=== PATIENT | male | born 1955 | race Caucasian/White ===

== ENCOUNTER 2021-12-23 12:36 | Inpatient (IN) | payer MEDICARE, MEDICAID ==
[~2021-12-23] VITALS: Ht 182.9 cm; Wt 70.6 kg
[~2021-12-23 12:36] MED LIST: ALBUTEROL SULFATE 5 MG/ML 20 ML NEB SOLN [BULK] NEB ONE
[2021-12-23] MEDS ORDERED: IPRATROPIUM BROMIDE 0.5 MG/2.5 ML NEB SOLUTION NEB ONE (12:45)
[2021-12-23] MEDS ORDERED: MethylPREDNISolone SOD SUCC 125 MG/2 ML VIAL IVP ONE (12:45)
[2021-12-23] MEDS ORDERED: MAGNESIUM SULFATE 2 GM in DEXTROSE 5%-WATER 100 ML IV ONE (12:45)
[2021-12-23 12:52] LABS: BASOPHILS % (AUTO) 0.3 % (0.0-2.0); EOSINOPHILS % (AUTO) 0.1 % (1.0-6.0); HEMOGLOBIN 14.2 g/dL (13.5-17.5); LYMPHOCYTES # (AUTO) 1.5 K/uL (1.0-4.8); LYMPHOCYTES % (AUTO) 16.6 % (22.0-44.0); MEAN CORPUSCULAR HEMOGLOBIN 29.9 pg (26.0-34.0); MEAN CORPUSCULAR HGB CONC 33.1 G/dL (31.0-37.0); MEAN CORPUSCULAR VOLUME 90 fL (80-100); MONOCYTES # (AUTO) 0.3 K/uL (0.1-1.0); MONOCYTES % (AUTO) 3.6 % (2.0-9.0); NEUTROPHILS % (AUTO) 79.4 % (40.0-70.0); PLATELET COUNT (AUTO) 355 K/uL (150-450); RED BLOOD CELL COUNT(AUTO) 4.76 MIL/uL (4.50-5.90); RED CELL DISTRIBUTION WIDTH 14.3 % (11.5-14.5)
[2021-12-23] MEDS ORDERED: MAGNESIUM SULFATE 2 GM in DEXTROSE 5%-WATER 50 ML IV ONE (13:00)
[2021-12-23 13:01] LABS: ANION GAP 14 mmol/L (8-16); CALCIUM, TOTAL 9.7 mg/dL (8.8-10.5); CARBON DIOXIDE 26 mmol/L (22-29); CHLORIDE 101 mmol/L (98-107); CREATININE 1.19 mg/dL (0.60-1.30); GLOMERULAR FILTR. RATE CALC > 60 mL/min (>60); GLUCOSE,RANDOM 231 mg/dL (70-110); POTASSIUM 4.3 mmol/L (3.5-5.1); SODIUM SERUM 141 mmol/L (136-145); UREA NITROGEN, BLOOD 14 mg/dL (7-18)
[2021-12-23 13:11] LABS: D-DIMER 0.24 mg/L FEU (0.00-0.50); PROTHROMBIN TIME 10.7 SEC (9.4-11.6)
[2021-12-23 13:15] LABS: B-TYPE NATRIURETIC PEPTIDE 76 pg/mL (0-100)
[2021-12-23 13:18] LABS: COVID AG,FIA SOURCE NASOPHARYNGEAL
[2021-12-23 13:23] LABS: ALANINE AMINOTRANSFERASE 36 U/L (12-78); ALBUMIN 4.3 g/dL (3.4-5.0); ALKALINE PHOSPHATASE 65 U/L (46-116); ASPARTATE AMINOTRANSFERASE 15 U/L (15-37); BILIRUBIN,TOTAL 0.3 mg/dL (0.1-1.0); CREATINE KINASE, TOTAL ONLY 98 U/L (39-308); PHOSPHORUS 5.8 mg/dL (2.5-4.9)
[2021-12-23 13:32] LABS: LACTIC ACID 4.8 mmol/L (0.4-2.0)
[2021-12-23 13:36] LABS: C-REACTIVE PROTEIN QUANT < 0.05 mg/dL (0.00-0.30)
[2021-12-23] MEDS ORDERED: SODIUM CHLORIDE 0.9% 2,000 ML IV ONE (13:45)
[2021-12-23 14:06] LABS: ABG BASE EXCESS 0.2 mmol/L (-2.0-3.0); ABG CARBOXYHEMOGLOBIN 0.7 % (0.0-1.5); ABG HCO3 24.3 mmol/L (22.0-26.0); ABG METHEMOGLOBIN 0.3 % (0.0-1.5); ABG OXYGEN CONTENT 21.9 mL/dL (15.0-23.0); ABG OXYGEN SATURATION 99.7 % (95.0-98.0); ABG OXYHEMOGLOBIN 98.7 % (94.0-100.0); ABG PCO2 47 mmHg (35-45); ABG PH 7.356 (7.35-7.450); ABG TOTAL HEMOGLOBIN 14.8 G/dL (12.0-18.0); SOURCE, BLOOD GAS ARTERIAL
[2021-12-23 14:07] LABS: ABG A-A DIFF O2 166.4 mmHg (10-20.0); SITE, BLOOD GAS RT RADIAL
[2021-12-23 14:08] LABS: O2 DEVICE,BLOOD GAS BIPAP (ROOM AIR)
[2021-12-23] MEDS ORDERED: ONDANSETRON HCL 4 MG/2 ML VIAL IVP PRN ×2 (14:45→15:30)
[2021-12-23] MEDS ORDERED: 0.9% SODIUM CHLORIDE 10 ML SYRINGE IVP PRN (14:45)
[2021-12-23] MEDS ORDERED: ACETAMINOPHEN 325 MG TABLET PO PRN ×2 (14:45→15:30)
[2021-12-23] MEDS ORDERED: BISACODYL 10 MG RECTAL RECTAL SUPPOSITORY PR PRN (15:30)
[2021-12-23] MEDS ORDERED: ALBUTEROL SULFATE 2.5 MG/0.5 ML NEB SOLUTION NEB PRN (15:30)
[2021-12-23] MEDS ORDERED: IPRATROPIUM BROMIDE 0.5 MG/2.5 ML NEB SOLUTION NEB PRN (15:30)
[2021-12-23] MEDS ORDERED: MORPHINE SULFATE 2 MG/ML SYRINGE IVP PRN (15:30)
[2021-12-23] MEDS ORDERED: MAGNESIUM HYDROXIDE SUSPENSION 30 ML UDCUP PO PRN (15:30)
[2021-12-23] MEDS ORDERED: HYDROCODONE/ACETAMINOPHEN 5-325 MG TABLET PO PRN (15:30)
[2021-12-23] MEDS ORDERED: ZOLPIDEM TARTRATE 5 MG TABLET PO PRN (15:30)
[2021-12-23 16:46] VITALS: BP 109/61
[2021-12-23] MEDS: BENZONATATE 100 MG CAPSULE PO SCH ×2 (18:08→21:45)
[2021-12-23] MEDS: MethylPREDNISolone SOD SUCC 125 MG/2 ML VIAL IVP SCH (18:08)
[2021-12-23] MEDS: HEPARIN SODIUM,PORCINE 5,000 UNITS/ML VIAL SQ SCH (18:12)
[2021-12-23] MEDS: CefTRIAXone 1 GM/DEXTROSE 50 ML IV SCH (18:36)
[2021-12-23] MEDS: IPRATROPIUM BROMIDE 0.5 MG/2.5 ML NEB SOLUTION NEB SCH (20:20)
[2021-12-23] MEDS: ALBUTEROL SULFATE 2.5 MG/0.5 ML NEB SOLUTION NEB SCH (20:20)
[2021-12-23 20:35] VITALS: BP 101/78
[2021-12-23] MEDS: GuaiFENesin SR 600 MG ER TABLET PO SCH (21:45)
[2021-12-23] MEDS: AZITHROMYCIN 500 MG/NS 250 ML IV SCH (21:45)
[2021-12-23] MEDS: DOCUSATE SODIUM 100 MG CAPSULE PO SCH (21:45)
[2021-12-24] MEDS: HEPARIN SODIUM,PORCINE 5,000 UNITS/ML VIAL SQ SCH ×4 (00:03→23:50)
[2021-12-24] MEDS: MethylPREDNISolone SOD SUCC 125 MG/2 ML VIAL IVP SCH ×5 (00:03→23:51)
[2021-12-24 00:34] VITALS: BP 100/67
[2021-12-24] MEDS: IPRATROPIUM BROMIDE 0.5 MG/2.5 ML NEB SOLUTION NEB SCH ×2 (02:00→09:21)
[2021-12-24] MEDS: ALBUTEROL SULFATE 2.5 MG/0.5 ML NEB SOLUTION NEB SCH (02:00)
[2021-12-24 05:06] VITALS: BP 118/80
[2021-12-24 07:43] VITALS: BP 124/85
[2021-12-24] MEDS: PANTOPRAZOLE SODIUM 40 MG DR TABLET PO SCH (08:07)
[2021-12-24] MEDS: BENZONATATE 100 MG CAPSULE PO SCH ×3 (08:08→21:45)
[2021-12-24] MEDS: GuaiFENesin SR 600 MG ER TABLET PO SCH ×2 (08:08→21:44)
[2021-12-24] MEDS: DOCUSATE SODIUM 100 MG CAPSULE PO SCH ×2 (08:08→21:44)
[2021-12-24 10:32] LABS: EOSINOPHILS % (AUTO) 0 % (1.0-6.0); HEMATOCRIT 39.5 % (41-53); LYMPHOCYTES # (AUTO) 0.3 K/uL (1.0-4.8); LYMPHOCYTES % (AUTO) 3.4 % (22.0-44.0); MEAN CORPUSCULAR HEMOGLOBIN 29.7 pg (26.0-34.0); MEAN CORPUSCULAR VOLUME 90 fL (80-100); MONOCYTES # (AUTO) 0.5 K/uL (0.1-1.0); NEUTROPHILS # (AUTO) 7.6 K/uL (1.8-7.7); PLATELET COUNT (AUTO) 294 K/uL (150-450); RED BLOOD CELL COUNT(AUTO) 4.39 MIL/uL (4.50-5.90); RED CELL DISTRIBUTION WIDTH 14.5 % (11.5-14.5)
[2021-12-24 10:33] LABS: NEUTROPHILS % (AUTO) 90.6 % (40.0-70.0)
[2021-12-24 10:49] LABS: ALBUMIN 3.6 g/dL (3.4-5.0); BILIRUBIN,TOTAL 0.3 mg/dL (0.1-1.0); CREATININE 1.24 mg/dL (0.60-1.30); POTASSIUM 4.5 mmol/L (3.5-5.1); TOTAL PROTEIN, SERUM 6.8 g/dL (6.4-8.2)
[2021-12-24 11:43] VITALS: BP 112/55
[2021-12-24] MEDS: IPRATROPIUM BROMIDE HFA 17 MCG/PUFF 12.9 GM INHALER IH PRN ×2 (15:28→22:03)
[2021-12-24] MEDS: ALBUTEROL SULFATE HFA 90 MCG/PUFF 8 GM INHALER IH PRN ×2 (15:29→22:03)
[2021-12-24 15:49] VITALS: BP 143/108
[2021-12-24] MEDS: CefTRIAXone 1 GM/DEXTROSE 50 ML IV SCH (17:27)
[2021-12-24] MEDS: AZITHROMYCIN 500 MG/NS 250 ML IV SCH (18:39)
[2021-12-24 19:35] VITALS: BP 127/96
[2021-12-25 00:06] VITALS: BP 122/75
[2021-12-25 04:58] VITALS: BP 126/91
[2021-12-25] MEDS: MethylPREDNISolone SOD SUCC 125 MG/2 ML VIAL IVP SCH (06:44)
[2021-12-25 07:38] LABS: ANION GAP 5 mmol/L (8-16); CALCIUM, TOTAL 9.1 mg/dL (8.8-10.5); CARBON DIOXIDE 33 mmol/L (22-29); CHLORIDE 103 mmol/L (98-107); CREATININE 1.07 mg/dL (0.60-1.30); GLOMERULAR FILTR. RATE CALC > 60 mL/min (>60); GLUCOSE,RANDOM 121 mg/dL (70-110); POTASSIUM 4.9 mmol/L (3.5-5.1); SODIUM SERUM 141 mmol/L (136-145); UREA NITROGEN, BLOOD 18 mg/dL (7-18)
[2021-12-25] MEDS: BENZONATATE 100 MG CAPSULE PO SCH ×3 (07:58→20:19)
[2021-12-25] MEDS: PANTOPRAZOLE SODIUM 40 MG DR TABLET PO SCH (07:58)
[2021-12-25] MEDS: PredniSONE 20 MG TABLET PO SCH (07:59)
[2021-12-25] MEDS: HEPARIN SODIUM,PORCINE 5,000 UNITS/ML VIAL SQ SCH ×2 (07:59→16:44)
[2021-12-25] MEDS: GuaiFENesin SR 600 MG ER TABLET PO SCH ×2 (07:59→20:19)
[2021-12-25] MEDS: DOCUSATE SODIUM 100 MG CAPSULE PO SCH ×2 (07:59→20:19)
[2021-12-25] MEDS: IPRATROPIUM BROMIDE HFA 17 MCG/PUFF 12.9 GM INHALER IH PRN ×2 (08:07→20:28)
[2021-12-25] MEDS: ALBUTEROL SULFATE HFA 90 MCG/PUFF 8 GM INHALER IH PRN ×2 (08:07→20:29)
[2021-12-25 08:44] VITALS: BP 128/95
[2021-12-25 12:52] VITALS: BP 152/96
[2021-12-25 15:54] VITALS: BP 159/95
[2021-12-25] MEDS: CefTRIAXone 1 GM/DEXTROSE 50 ML IV SCH (17:43)
[2021-12-25] MEDS: AZITHROMYCIN 500 MG/NS 250 ML IV SCH (18:35)
[2021-12-25 22:15] VITALS: BP 132/89
[2021-12-26] VITALS: BP 114/81
[2021-12-26] MEDS: HEPARIN SODIUM,PORCINE 5,000 UNITS/ML VIAL SQ SCH ×3 (00:17→16:24)
[2021-12-26 04:00] VITALS: BP 136/99
[2021-12-26 07:33] VITALS: BP 136/83
[2021-12-26 08:03] LABS: ANION GAP 3 mmol/L (8-16); CALCIUM, TOTAL 8.8 mg/dL (8.8-10.5); CARBON DIOXIDE 37 mmol/L (22-29); CHLORIDE 103 mmol/L (98-107); CREATININE 1.05 mg/dL (0.60-1.30); GLOMERULAR FILTR. RATE CALC > 60 mL/min (>60); GLUCOSE,RANDOM 89 mg/dL (70-110); POTASSIUM 4.6 mmol/L (3.5-5.1); SODIUM SERUM 143 mmol/L (136-145); UREA NITROGEN, BLOOD 20 mg/dL (7-18)
[2021-12-26] MEDS: PANTOPRAZOLE SODIUM 40 MG DR TABLET PO SCH (08:59)
[2021-12-26] MEDS: BENZONATATE 100 MG CAPSULE PO SCH ×3 (08:59→20:19)
[2021-12-26] MEDS: PredniSONE 20 MG TABLET PO SCH (08:59)
[2021-12-26] MEDS: GuaiFENesin SR 600 MG ER TABLET PO SCH ×2 (09:00→20:19)
[2021-12-26] MEDS: ALBUTEROL SULFATE HFA 90 MCG/PUFF 8 GM INHALER IH PRN ×2 (09:01→16:29)
[2021-12-26] MEDS: IPRATROPIUM BROMIDE HFA 17 MCG/PUFF 12.9 GM INHALER IH PRN ×2 (09:01→16:29)
[2021-12-26] MEDS: DOCUSATE SODIUM 100 MG CAPSULE PO SCH ×2 (09:07→20:19)
[2021-12-26 11:26] VITALS: BP 157/90
[2021-12-26] MEDS ORDERED: MethylPREDNISolone SOD SUCC 125 MG/2 ML VIAL IVP ONE (12:30)
[2021-12-26 16:22] VITALS: BP 133/105
[2021-12-26] MEDS: CefTRIAXone 1 GM/DEXTROSE 50 ML IV SCH (18:06)
[2021-12-26] MEDS: BUDESONIDE 0.5 MG/2 ML NEB SOLUTION NEB SCH (20:10)
[2021-12-26] MEDS: AZITHROMYCIN 500 MG/NS 250 ML IV SCH (20:19)
[2021-12-26 20:22] VITALS: BP 138/97
[2021-12-27] MEDS: HEPARIN SODIUM,PORCINE 5,000 UNITS/ML VIAL SQ SCH ×4 (00:04→23:30)
[2021-12-27 01:59] VITALS: BP 134/94
[2021-12-27 04:39] VITALS: BP 118/74
[2021-12-27] MEDS: BUDESONIDE 0.5 MG/2 ML NEB SOLUTION NEB SCH ×2 (08:14→19:42)
[2021-12-27 08:26] VITALS: BP 148/103
[2021-12-27] MEDS: PredniSONE 20 MG TABLET PO SCH (08:39)
[2021-12-27] MEDS: BENZONATATE 100 MG CAPSULE PO SCH ×3 (08:40→20:27)
[2021-12-27] MEDS: DOCUSATE SODIUM 100 MG CAPSULE PO SCH ×2 (08:40→20:27)
[2021-12-27] MEDS: GuaiFENesin SR 600 MG ER TABLET PO SCH ×2 (08:40→20:27)
[2021-12-27] MEDS: PANTOPRAZOLE SODIUM 40 MG DR TABLET PO SCH (08:40)
[2021-12-27 11:10] LABS: ABG BASE EXCESS 5.6 mmol/L (-2.0-3.0); ABG CARBOXYHEMOGLOBIN 0.5 % (0.0-1.5); ABG HCO3 28.9 mmol/L (22.0-26.0); ABG METHEMOGLOBIN 0.3 % (0.0-1.5); ABG OXYGEN CONTENT 20.5 mL/dL (15.0-23.0); ABG OXYHEMOGLOBIN 96.2 % (94.0-100.0); ABG PCO2 44 mmHg (35-45); ABG PH 7.447 (7.35-7.450); ABG TOTAL HEMOGLOBIN 15.1 G/dL (12.0-18.0); PO2, ARTERIAL BG 85.1 mmHg (79.0-87.0); SOURCE, BLOOD GAS ARTERIAL
[2021-12-27 11:12] LABS: SITE, BLOOD GAS RT
[2021-12-27 13:14] VITALS: BP 140/90
[2021-12-27] MEDS: ALBUTEROL SULFATE HFA 90 MCG/PUFF 8 GM INHALER IH PRN (16:19)
[2021-12-27] MEDS: IPRATROPIUM BROMIDE HFA 17 MCG/PUFF 12.9 GM INHALER IH PRN (16:19)
[2021-12-27] MEDS: CefTRIAXone 1 GM/DEXTROSE 50 ML IV SCH (17:55)
[2021-12-27 18:35] VITALS: BP 132/88
[2021-12-27] MEDS: AZITHROMYCIN 500 MG/NS 250 ML IV SCH (20:27)
[2021-12-27 20:35] VITALS: BP 131/90
[2021-12-28 00:16] VITALS: BP 117/77
[2021-12-28 04:08] VITALS: BP 137/92
[2021-12-28] MEDS: BENZONATATE 100 MG CAPSULE PO SCH ×3 (08:29→20:02)
[2021-12-28] MEDS: PredniSONE 20 MG TABLET PO SCH (08:29)
[2021-12-28] MEDS: GuaiFENesin SR 600 MG ER TABLET PO SCH ×2 (08:29→20:02)
[2021-12-28] MEDS: DOCUSATE SODIUM 100 MG CAPSULE PO SCH ×2 (08:29→20:02)
[2021-12-28] MEDS: HEPARIN SODIUM,PORCINE 5,000 UNITS/ML VIAL SQ SCH ×3 (08:29→23:24)
[2021-12-28] MEDS: PANTOPRAZOLE SODIUM 40 MG DR TABLET PO SCH (08:29)
[2021-12-28 08:37] VITALS: BP 135/99
[2021-12-28] MEDS: BUDESONIDE 0.5 MG/2 ML NEB SOLUTION NEB SCH ×2 (08:52→20:15)
[2021-12-28 12:00] VITALS: BP 136/76
[2021-12-28] MEDS: CefTRIAXone 1 GM/DEXTROSE 50 ML IV SCH (18:19)
[2021-12-28] MEDS: AZITHROMYCIN 500 MG/NS 250 ML IV SCH (19:39)
[2021-12-28 21:48] VITALS: BP 100/71
[2021-12-29 01:17] VITALS: BP 138/88
[2021-12-29 04:36] VITALS: BP 151/104
[2021-12-29 08:00] VITALS: BP 134/79
[2021-12-29] MEDS: BUDESONIDE 0.5 MG/2 ML NEB SOLUTION NEB SCH ×2 (08:38→20:04)
[2021-12-29] MEDS: DOCUSATE SODIUM 100 MG CAPSULE PO SCH ×2 (09:00→20:28)
[2021-12-29] MEDS: HEPARIN SODIUM,PORCINE 5,000 UNITS/ML VIAL SQ SCH ×2 (09:14→16:44)
[2021-12-29] MEDS: PredniSONE 20 MG TABLET PO SCH (09:15)
[2021-12-29] MEDS: GuaiFENesin SR 600 MG ER TABLET PO SCH ×2 (09:15→20:28)
[2021-12-29] MEDS: BENZONATATE 100 MG CAPSULE PO SCH ×3 (09:15→20:28)
[2021-12-29] MEDS: PANTOPRAZOLE SODIUM 40 MG DR TABLET PO SCH (09:15)
[2021-12-29 12:00] VITALS: BP 123/79
[2021-12-29] MEDS ORDERED: ALBU8HFA IH (15:31)
[2021-12-29] MEDS ORDERED: AMOX1TAB16 PO (15:31)
[2021-12-29] MEDS ORDERED: PRED20 PO (15:31)
[2021-12-29] MEDS ORDERED: BUDE0.5A NEB (15:31)
[2021-12-29] MEDS ORDERED: ALBU0.212 NEB (15:31)
[2021-12-29] MEDS: AZITHROMYCIN 500 MG/NS 250 ML IV SCH (18:34)
[2021-12-29] MEDS: CefTRIAXone 1 GM/DEXTROSE 50 ML IV SCH (18:36)
[2021-12-29 20:00] VITALS: BP 114/74
[2021-12-30] VITALS: BP 120/70
[2021-12-30] MEDS: HEPARIN SODIUM,PORCINE 5,000 UNITS/ML VIAL SQ SCH ×4 (00:28→23:27)
[2021-12-30 04:00] VITALS: BP 124/68
[2021-12-30] MEDS: BUDESONIDE 0.5 MG/2 ML NEB SOLUTION NEB SCH ×2 (07:50→19:32)
[2021-12-30] MEDS: BENZONATATE 100 MG CAPSULE PO SCH ×3 (08:57→20:39)
[2021-12-30] MEDS: GuaiFENesin SR 600 MG ER TABLET PO SCH ×2 (08:57→20:39)
[2021-12-30] MEDS: PANTOPRAZOLE SODIUM 40 MG DR TABLET PO SCH (08:57)
[2021-12-30] MEDS: PredniSONE 20 MG TABLET PO SCH (09:00)
[2021-12-30] MEDS: DOCUSATE SODIUM 100 MG CAPSULE PO SCH ×2 (09:00→20:39)
[2021-12-30 14:22] VITALS: BP 121/82
[2021-12-30] MEDS: CefTRIAXone 1 GM/DEXTROSE 50 ML IV SCH (17:54)
[2021-12-30] MEDS: AZITHROMYCIN 500 MG/NS 250 ML IV SCH (20:38)
[2021-12-30 20:57] VITALS: BP 118/65
[2021-12-31 00:04] VITALS: BP 126/79
[2021-12-31 03:37] VITALS: BP 113/88
[2021-12-31 07:43] VITALS: BP 113/75
[2021-12-31] MEDS: BUDESONIDE 0.5 MG/2 ML NEB SOLUTION NEB SCH (08:27)
[2021-12-31] MEDS: PANTOPRAZOLE SODIUM 40 MG DR TABLET PO SCH (08:56)
[2021-12-31] MEDS: GuaiFENesin SR 600 MG ER TABLET PO SCH (08:56)
[2021-12-31] MEDS: DOCUSATE SODIUM 100 MG CAPSULE PO SCH (08:56)
[2021-12-31] MEDS: PredniSONE 20 MG TABLET PO SCH (08:56)
[2021-12-31] MEDS: BENZONATATE 100 MG CAPSULE PO SCH ×2 (08:56→16:24)
[2021-12-31] MEDS: HEPARIN SODIUM,PORCINE 5,000 UNITS/ML VIAL SQ SCH ×2 (08:57→16:27)
[2021-12-31 11:17] VITALS: BP 106/60
[2021-12-31 15:12] VITALS: BP 100/64
[2021-12-31] MEDS: CefTRIAXone 1 GM/DEXTROSE 50 ML IV SCH (17:29)
== END 2021-12-31 18:50 | disposition home or self-care (01) | DRG 189 ==
LOC: EMS 12:43 → 5N 14:29
PROVIDERS: ADMIT Internal Medicine; ATTEND Internal Medicine
PROC: 5A09357 Assistance with Respiratory Ventilation, Less than 24 Consecutive Hours, Continuous Positive Airway Pressure (ICD-10-PCS; principal; 2021-12-23)
DX: J96.01 Acute respiratory failure with hypoxia (principal); R65.11 Systemic inflammatory response syndrome (SIRS) of non-infectious origin with acute organ dysfunction; J45.901 Unspecified asthma with (acute) exacerbation; J44.1 Chronic obstructive pulmonary disease with (acute) exacerbation; Z20.822 Contact with and (suspected) exposure to COVID-19; I10 Essential (primary) hypertension; Z86.16 Personal history of COVID-19; Z82.0 Family history of epilepsy and other diseases of the nervous system
CPT/HCPCS: 36600; 71045; 80048; 80053; 82550; 82805; 83605; 83735; 83880; 84100; 84145; 84484; 85025; 85379; 85610; 85730; 86140; 93005; 93306; 94640; 94644; 94660; 99291; J0456; J0696; J1644; J2930; J3475; J3535; J7060; 36415-L1; 36415-TC; J7613; U0003

== ENCOUNTER 2022-03-31 10:40 | Emergency (ER) | payer MEDICARE, MEDICAID ==
[~2022-03-31] VITALS: Ht 182.9 cm; Wt 70.5 kg
[~2022-03-31 10:40] MED LIST changes: +ALBU0.212 NEB; +ALBU8HFA IH; -ALBUTEROL SULFATE 5 MG/ML 20 ML NEB SOLN [BULK] NEB ONE; +AMOX1TAB16 PO; +BUDE0.5A NEB; +PRED20 PO
[2022-03-31 11:47] LABS: BASOPHILS % (AUTO) 1.1 % (0.0-2.0); EOSINOPHILS % (AUTO) 4.4 % (1.0-6.0); HEMATOCRIT 40.2 % (41-53); HEMOGLOBIN 13.7 g/dL (13.5-17.5); LYMPHOCYTES # (AUTO) 1.3 K/uL (1.0-4.8); LYMPHOCYTES % (AUTO) 27.1 % (22.0-44.0); MEAN CORPUSCULAR HEMOGLOBIN 30.3 pg (26.0-34.0); MEAN CORPUSCULAR VOLUME 89 fL (80-100); MONOCYTES # (AUTO) 0.5 K/uL (0.1-1.0); MONOCYTES % (AUTO) 10.5 % (2.0-9.0); NEUTROPHILS # (AUTO) 2.7 K/uL (1.8-7.7); NEUTROPHILS % (AUTO) 56.9 % (40.0-70.0); PLATELET COUNT (AUTO) 274 K/uL (150-450); RED BLOOD CELL COUNT(AUTO) 4.51 MIL/uL (4.50-5.90); RED CELL DISTRIBUTION WIDTH 14.4 % (11.5-14.5)
[2022-03-31] MEDS ORDERED: 0.9% SODIUM CHLORIDE 5 ML NEB SOLUTION NEB ONE (11:54)
[2022-03-31] MEDS ORDERED: ALBU8HFA IH (11:54)
[2022-03-31] MEDS ORDERED: FLUT1BLS IH (11:54)
[2022-03-31] MEDS ORDERED: ATOR10TA69 PO (11:54)
[2022-03-31] MEDS ORDERED: LORA10TA7 PO (11:54)
[2022-03-31] MEDS ORDERED: LISI20TA24 PO (11:54)
[2022-03-31 11:59] LABS: ANION GAP 7 mmol/L (8-16); CALCIUM, TOTAL 9.3 mg/dL (8.8-10.5); CARBON DIOXIDE 31 mmol/L (22-29); CHLORIDE 103 mmol/L (98-107); GLOMERULAR FILTR. RATE CALC > 60 mL/min (>60); GLUCOSE,RANDOM 103 mg/dL (70-110); POTASSIUM 4.2 mmol/L (3.5-5.1); SODIUM SERUM 141 mmol/L (136-145); UREA NITROGEN, BLOOD 16 mg/dL (7-18)
[2022-03-31] MEDS ORDERED: IPRATROPIUM BROMIDE 0.5 MG/2.5 ML NEB SOLUTION NEB ONE (12:00)
[2022-03-31] MEDS ORDERED: ALBUTEROL SULFATE 5 MG/ML 20 ML NEB SOLN [BULK] NEB ONE (12:00)
[2022-03-31 12:04] LABS: ALANINE AMINOTRANSFERASE 9 U/L (12-78); ALKALINE PHOSPHATASE 50 U/L (46-116); ASPARTATE AMINOTRANSFERASE 14 U/L (15-37); BILIRUBIN,TOTAL 0.4 mg/dL (0.1-1.0); TOTAL PROTEIN, SERUM 7.3 g/dL (6.4-8.2)
[2022-03-31 12:09] LABS: B-TYPE NATRIURETIC PEPTIDE 13 pg/mL (0-100)
[2022-03-31 14:10] VITALS: BP 112/75
== END 2022-03-31 14:12 | disposition home or self-care (01) ==
LOC: EMS 10:40
DX: J45.901 Unspecified asthma with (acute) exacerbation (principal); I10 Essential (primary) hypertension; Z79.899 Other long term (current) drug therapy
CPT/HCPCS: 71045; 80053; 83880; 84484; 85025; 85610; 85730; 93005; 94640; 99285; 36415-L1; 36415-TC

== ENCOUNTER 2022-12-02 00:13 | Emergency (ER) | payer MEDICARE, MEDICAID ==
[~2022-12-02] VITALS: Ht 182.9 cm; Wt 72.7 kg
[~2022-12-02 00:13] MED LIST changes: -ALBU0.212 NEB; -AMOX1TAB16 PO; +ATOR10TA69 PO; -BUDE0.5A NEB; +FLUT1BLS IH; +LISI20TA24 PO; +LORA10TA7 PO; -PRED20 PO
[2022-12-02] MEDS ORDERED: ALBUTEROL SULFATE 2.5 MG/0.5 ML NEB SOLUTION NEB ONE ×2 (00:30→03:00)
[2022-12-02] MEDS ORDERED: IPRATROPIUM BROMIDE 0.5 MG/2.5 ML NEB SOLUTION NEB ONE ×2 (00:30→03:00)
[2022-12-02] MEDS ORDERED: MethylPREDNISolone SOD SUCC 125 MG/2 ML VIAL IVP ONE (00:45)
[2022-12-02 01:01] LABS: BASOPHILS % (AUTO) 0.5 % (0.0-2.0); EOSINOPHILS % (AUTO) 7.9 % (1.0-6.0); HEMATOCRIT 41.1 % (41-53); HEMOGLOBIN 13.8 g/dL (13.5-17.5); LYMPHOCYTES # (AUTO) 1.7 K/uL (1.0-4.8); LYMPHOCYTES % (AUTO) 17.8 % (22.0-44.0); MEAN CORPUSCULAR HEMOGLOBIN 30.3 pg (26.0-34.0); MEAN CORPUSCULAR HGB CONC 33.6 G/dL (31.0-37.0); MEAN CORPUSCULAR VOLUME 90 fL (80-100); MONOCYTES # (AUTO) 1.1 K/uL (0.1-1.0); MONOCYTES % (AUTO) 11.2 % (2.0-9.0); NEUTROPHILS # (AUTO) 5.9 K/uL (1.8-7.7); NEUTROPHILS % (AUTO) 62.6 % (40.0-70.0); PLATELET COUNT (AUTO) 303 K/uL (150-450); RED BLOOD CELL COUNT(AUTO) 4.55 MIL/uL (4.50-5.90); RED CELL DISTRIBUTION WIDTH 14.5 % (11.5-14.5)
[2022-12-02 01:11] LABS: CALCIUM, TOTAL 8.9 mg/dL (8.8-10.5); CREATININE 1.2 mg/dL (0.60-1.30); POTASSIUM 4.6 mmol/L (3.5-5.1)
[2022-12-02 01:14] LABS: COVID AG,FIA SOURCE NASOPHARYNGEAL
[2022-12-02 01:37] LABS: INFLUENZA TYPE A NEGATIVE FOR TYPE A (NEGATIVE); INFLUENZA TYPE B NEGATIVE FOR TYPE B (NEGATIVE)
[2022-12-02] MEDS ORDERED: PRED-554 PO (02:49)
[2022-12-02 04:29] VITALS: BP 109/71
== END 2022-12-02 05:59 | disposition home or self-care (01) ==
LOC: EMS 00:15
DX: J44.1 Chronic obstructive pulmonary disease with (acute) exacerbation (principal); I10 Essential (primary) hypertension; Z79.899 Other long term (current) drug therapy; Z20.822 Contact with and (suspected) exposure to COVID-19
CPT/HCPCS: 99285; 96374; 71045; 87426; 80048; 84484; 85025; 87804; 36415; 94640; 93005; J2930; J7613

== ENCOUNTER 2022-12-31 12:10 | Emergency (ER) | payer MEDICARE, MEDICAID ==
[~2022-12-31] VITALS: Ht 177.8 cm; Wt 69.1 kg
[~2022-12-31 12:10] MED LIST changes: +PRED-554 PO
[2022-12-31] MEDS ORDERED: MethylPREDNISolone SOD SUCC 125 MG/2 ML VIAL IVP ONE (13:00)
[2022-12-31] MEDS ORDERED: ALBUTEROL SULFATE 2.5 MG/0.5 ML NEB SOLUTION NEB ONE (13:00)
[2022-12-31] MEDS ORDERED: IPRATROPIUM BROMIDE 0.5 MG/2.5 ML NEB SOLUTION NEB ONE (13:00)
[2022-12-31 13:01] LABS: BASOPHILS % (AUTO) 0.9 % (0.0-2.0); EOSINOPHILS % (AUTO) 5.6 % (1.0-6.0); HEMATOCRIT 42.3 % (41-53); HEMOGLOBIN 13.9 g/dL (13.5-17.5); LYMPHOCYTES # (AUTO) 1.1 K/uL (1.0-4.8); LYMPHOCYTES % (AUTO) 21.7 % (22.0-44.0); MEAN CORPUSCULAR HEMOGLOBIN 29.8 pg (26.0-34.0); MEAN CORPUSCULAR HGB CONC 32.9 G/dL (31.0-37.0); MEAN CORPUSCULAR VOLUME 91 fL (80-100); MONOCYTES # (AUTO) 0.5 K/uL (0.1-1.0); MONOCYTES % (AUTO) 9.5 % (2.0-9.0); NEUTROPHILS # (AUTO) 3.3 K/uL (1.8-7.7); NEUTROPHILS % (AUTO) 62.3 % (40.0-70.0); PLATELET COUNT (AUTO) 294 K/uL (150-450); RED BLOOD CELL COUNT(AUTO) 4.67 MIL/uL (4.50-5.90); RED CELL DISTRIBUTION WIDTH 13.7 % (11.5-14.5)
[2022-12-31 13:04] LABS: ANION GAP 6 mmol/L (8-16); CALCIUM, TOTAL 9.5 mg/dL (8.8-10.5); CARBON DIOXIDE 32 mmol/L (22-29); CHLORIDE 100 mmol/L (98-107); CREATININE 0.97 mg/dL (0.60-1.30); GLOMERULAR FILTR. RATE CALC > 60 mL/min (>60); GLUCOSE,RANDOM 101 mg/dL (70-110); POTASSIUM 4.2 mmol/L (3.5-5.1); SODIUM SERUM 138 mmol/L (136-145); UREA NITROGEN, BLOOD 11 mg/dL (7-18)
[2022-12-31 13:10] LABS: ALANINE AMINOTRANSFERASE 33 U/L (12-78); ALBUMIN 4.3 g/dL (3.4-5.0); ALKALINE PHOSPHATASE 75 U/L (46-116); ASPARTATE AMINOTRANSFERASE 25 U/L (15-37); BILIRUBIN,TOTAL 0.3 mg/dL (0.1-1.0); CREATINE KINASE, TOTAL ONLY 95 U/L (39-308); TOTAL PROTEIN, SERUM 7.7 g/dL (6.4-8.2)
[2022-12-31 13:15] LABS: B-TYPE NATRIURETIC PEPTIDE 11 pg/mL (0-100)
[2022-12-31 15:22] LABS: COVID AG,FIA SOURCE NASOPHARYNGEAL
[2022-12-31 15:52] VITALS: BP 147/88
[2022-12-31] MEDS ORDERED: ALBU8HFA IH (15:57)
[2022-12-31] MEDS ORDERED: IPRA3AMP24 NEB (15:57)
[2022-12-31] MEDS ORDERED: IPRAHFA IH (15:57)
[2022-12-31] MEDS ORDERED: PRED-554 PO (15:57)
[2022-12-31 16:18] LABS: INFLUENZA TYPE A NEGATIVE FOR TYPE A (NEGATIVE); INFLUENZA TYPE B NEGATIVE FOR TYPE B (NEGATIVE)
== END 2022-12-31 16:24 | disposition home or self-care (01) ==
LOC: EMS 12:11
DX: R06.03 Acute respiratory distress (principal); J44.1 Chronic obstructive pulmonary disease with (acute) exacerbation; J45.909 Unspecified asthma, uncomplicated; J44.9 Chronic obstructive pulmonary disease, unspecified; I10 Essential (primary) hypertension; Z20.822 Contact with and (suspected) exposure to COVID-19
CPT/HCPCS: 99285; 96374; 71045; 87426; 80053; 82550; 83880; 84484; 85025; 85379; 87040; 87804; 94644; 93005; J2930; 99284; 36415-L1; 36415-TC; J7613

== ENCOUNTER 2023-09-26 15:26 | Emergency (ER) | payer MEDICARE, MEDICAID ==
[~2023-09-26] VITALS: Ht 180.3 cm; Wt 70.9 kg
[~2023-09-26 15:26] MED LIST changes: +ALBU18HF12 IH; -ALBU8HFA IH; +IPRA3AMP24 NEB; +IPRAHFA IH
[2023-09-26] MEDS ORDERED: BACITRACIN 0.9 GM PACKET OINTMENT TP ONE (16:00)
[2023-09-26] MEDS ORDERED: PERTUSS(ACELL),DIPH,TET VAC/PF 0.5 ML SYRINGE IM. ONE (16:00)
[2023-09-26] MEDS ORDERED: ACETAMINOPHEN 500 MG TABLET PO ONE (16:00)
[2023-09-26 16:08] VITALS: TEMP 98.5
[2023-09-26 17:00] VITALS: BP 140/90; PULSE 80; RESP 12
== END 2023-09-26 17:14 | disposition home or self-care (01) ==
LOC: EMS 15:28
DX: S09.90XA Unspecified injury of head, initial encounter (principal); J44.9 Chronic obstructive pulmonary disease, unspecified; I10 Essential (primary) hypertension; Y04.8XXA Assault by other bodily force, initial encounter; Y93.89 Activity, other specified; Y92.89 Other specified places as the place of occurrence of the external cause; Y99.8 Other external cause status
CPT/HCPCS: 70450; 70486; 72125; 90471; 90715; 99285

== ENCOUNTER 2023-09-29 13:10 | Emergency (ER) | payer MEDICARE, MEDICAID ==
[~2023-09-29] VITALS: Ht 177.8 cm; Wt 70.5 kg
[2023-09-29 13:19] VITALS: TEMP 97.8
[2023-09-29 14:01] LABS: EOSINOPHILS % (AUTO) 8.1 % (1.0-6.0); HEMATOCRIT 36.5 % (41-53); HEMOGLOBIN 12.1 g/dL (13.5-17.5); LYMPHOCYTES # (AUTO) 1.1 K/uL (1.0-4.8); LYMPHOCYTES % (AUTO) 16.5 % (22.0-44.0); MEAN CORPUSCULAR HEMOGLOBIN 29.7 pg (26.0-34.0); MEAN CORPUSCULAR HGB CONC 33.1 G/dL (31.0-37.0); MEAN CORPUSCULAR VOLUME 90 fL (80-100); MONOCYTES # (AUTO) 0.5 K/uL (0.1-1.0); MONOCYTES % (AUTO) 7.6 % (2.0-9.0); NEUTROPHILS # (AUTO) 4.4 K/uL (1.8-7.7); NEUTROPHILS % (AUTO) 66.8 % (40.0-70.0); PLATELET COUNT (AUTO) 248 K/uL (150-450); RED BLOOD CELL COUNT(AUTO) 4.07 MIL/uL (4.50-5.90); RED CELL DISTRIBUTION WIDTH 14.9 % (11.5-14.5); WHITE BLOOD COUNT (AUTO) 6.6 K/uL (4.5-11.0)
[2023-09-29 14:11] LABS: ANION GAP 7 mmol/L (8-16); CARBON DIOXIDE 29 mmol/L (22-29); CHLORIDE 103 mmol/L (98-107); GLOMERULAR FILTR. RATE CALC > 60 mL/min (>60); GLUCOSE,RANDOM 105 mg/dL (70-110); POTASSIUM 4.1 mmol/L (3.5-5.1); SODIUM SERUM 139 mmol/L (136-145); UREA NITROGEN, BLOOD 12 mg/dL (7-18)
[2023-09-29 14:17] LABS: ALANINE AMINOTRANSFERASE 29 U/L (12-78); ALKALINE PHOSPHATASE 65 U/L (46-116); ASPARTATE AMINOTRANSFERASE 18 U/L (15-37); BILIRUBIN,TOTAL 0.3 mg/dL (0.1-1.0); TOTAL PROTEIN, SERUM 7.3 g/dL (6.4-8.2)
[2023-09-29 14:19] LABS: B-TYPE NATRIURETIC PEPTIDE 18 pg/mL (0-100); TROPONIN I-HIGH SENSITIVITY 6 ng/L (<76)
[2023-09-29] MEDS ORDERED: ALBUTEROL SULFATE 2.5 MG/0.5 ML 5 ML NEB SOLUTION NEB ONE (15:00)
[2023-09-29] MEDS ORDERED: IPRATROPIUM BROMIDE 0.5 MG/2.5 ML NEB SOLUTION NEB ONE (15:00)
[2023-09-29] MEDS ORDERED: 0.9% SODIUM CHLORIDE 15 ML NEB SOLUTION NEB ONE (15:24)
[2023-09-29 15:30] VITALS: PULSE 83; RESP 16; O2SAT 93
[2023-09-29 16:05] VITALS: PULSE 110; RESP 18; O2SAT 96
[2023-09-29] MEDS ORDERED: GUAIFDM PO (17:43)
[2023-09-29] MEDS ORDERED: PRED-554 PO (17:43)
[2023-09-29] MEDS ORDERED: PredniSONE 20 MG TABLET PO ONE (17:45)
[2023-09-29 18:00] VITALS: BP 135/99; PULSE 90; RESP 14
== END 2023-09-29 18:16 | disposition home or self-care (01) ==
LOC: EMS 13:10
DX: J44.1 Chronic obstructive pulmonary disease with (acute) exacerbation (principal); E88.01 Alpha-1-antitrypsin deficiency; I10 Essential (primary) hypertension
CPT/HCPCS: 99285; 71045; 80053; 83880; 84484; 85025; 36415; 94640; 93005; J7512; Q9967

== ENCOUNTER 2023-10-27 04:33 | Inpatient (IN) | payer MEDICARE, MEDICAID ==
[2023-10-27] VITALS (11 sets, daily range): BP systolic 110–130; BP diastolic 60–96; PULSE 60–110; RESP 14–20; TEMP 98–98.7; O2SAT 96–99
[~2023-10-27] VITALS: Ht 175.3 cm; Wt 71.3 kg
[~2023-10-27 04:33] MED LIST changes: +GUAIFDM PO
[2023-10-27] MEDS ORDERED: MethylPREDNISolone SOD SUCC 125 MG/2 ML VIAL IVP ONE (04:45)
[2023-10-27] MEDS ORDERED: ALBUTEROL SULFATE 2.5 MG/0.5 ML 5 ML NEB SOLUTION NEB ONE (04:45)
[2023-10-27] MEDS ORDERED: IPRATROPIUM BROMIDE 0.5 MG/2.5 ML NEB SOLUTION NEB ONE ×2 (04:45)
[2023-10-27] MEDS ORDERED: ALBUTEROL SULFATE 2.5 MG/0.5 ML NEB SOLUTION NEB ONE (04:45)
[2023-10-27] MEDS ORDERED: SODIUM CHLORIDE 0.9% 1,000 ML IV ONE (05:00)
[2023-10-27 05:01] LABS: COVID AG,FIA SOURCE NASAL SWAB
[2023-10-27 05:03] LABS: BASOPHILS % (AUTO) 1.3 % (0.0-2.0); EOSINOPHILS % (AUTO) 9.9 % (1.0-6.0); HEMATOCRIT 39.7 % (41-53); LYMPHOCYTES # (AUTO) 1.9 K/uL (1.0-4.8); LYMPHOCYTES % (AUTO) 27.5 % (22.0-44.0); MEAN CORPUSCULAR HEMOGLOBIN 29.3 pg (26.0-34.0); MEAN CORPUSCULAR HGB CONC 32.8 G/dL (31.0-37.0); MEAN CORPUSCULAR VOLUME 90 fL (80-100); MONOCYTES # (AUTO) 0.6 K/uL (0.1-1.0); MONOCYTES % (AUTO) 9.2 % (2.0-9.0); NEUTROPHILS # (AUTO) 3.5 K/uL (1.8-7.7); NEUTROPHILS % (AUTO) 52.1 % (40.0-70.0); PLATELET COUNT (AUTO) 332 K/uL (150-450); RED BLOOD CELL COUNT(AUTO) 4.44 MIL/uL (4.50-5.90); WHITE BLOOD COUNT (AUTO) 6.7 K/uL (4.5-11.0)
[2023-10-27 05:14] LABS: ANION GAP 8 mmol/L (8-16); CALCIUM, TOTAL 9.2 mg/dL (8.8-10.5); CARBON DIOXIDE 31 mmol/L (22-29); CHLORIDE 105 mmol/L (98-107); CREATININE 1.07 mg/dL (0.60-1.30); GLOMERULAR FILTR. RATE CALC > 60 mL/min (>60); GLUCOSE,RANDOM 146 mg/dL (70-110); POTASSIUM 4.6 mmol/L (3.5-5.1); SODIUM SERUM 144 mmol/L (136-145); UREA NITROGEN, BLOOD 14 mg/dL (7-18)
[2023-10-27 05:25] LABS: INFLUENZA TYPE A NEGATIVE FOR TYPE A (NEGATIVE); INFLUENZA TYPE B NEGATIVE FOR TYPE B (NEGATIVE); SARS-COV2 (COVID) ANTIGEN,FIA Negative (Negative)
[2023-10-27 05:26] LABS: ALANINE AMINOTRANSFERASE 28 U/L (12-78); ALBUMIN 4.3 g/dL (3.4-5.0); ALKALINE PHOSPHATASE 75 U/L (46-116); ASPARTATE AMINOTRANSFERASE 22 U/L (15-37); BILIRUBIN,TOTAL 0.3 mg/dL (0.1-1.0); CREATINE KINASE, TOTAL ONLY 134 U/L (39-308)
[2023-10-27 05:31] LABS: B-TYPE NATRIURETIC PEPTIDE 31 pg/mL (0-100)
[2023-10-27 05:39] LABS: TROPONIN I-HIGH SENSITIVITY 9 ng/L (<76)
[2023-10-27] MEDS ORDERED: ONDANSETRON HCL 4 MG/2 ML VIAL IVP PRN ×2 (05:45→11:45)
[2023-10-27] MEDS ORDERED: ACETAMINOPHEN 325 MG TABLET PO PRN ×2 (05:45→11:45)
[2023-10-27] MEDS ORDERED: 0.9% SODIUM CHLORIDE 10 ML SYRINGE IVP PRN (05:45)
[2023-10-27] MEDS: ALBUTEROL SULFATE 2.5 MG/0.5 ML NEB SOLUTION NEB PRN (11:38)
[2023-10-27] MEDS ORDERED: MORPHINE SULFATE 2 MG/ML SYRINGE IVP PRN (11:45)
[2023-10-27] MEDS ORDERED: BISACODYL 10 MG RECTAL RECTAL SUPPOSITORY PR PRN (11:45)
[2023-10-27] MEDS ORDERED: IPRATROPIUM BROMIDE 0.5 MG/2.5 ML NEB SOLUTION NEB PRN (11:45)
[2023-10-27] MEDS ORDERED: ZOLPIDEM TARTRATE 5 MG TABLET PO PRN (11:45)
[2023-10-27] MEDS ORDERED: HYDROCODONE/ACETAMINOPHEN 5-325 MG TABLET PO PRN (11:45)
[2023-10-27] MEDS ORDERED: MAGNESIUM HYDROXIDE SUSPENSION 30 ML UDCUP PO PRN (11:45)
[2023-10-27] MEDS ORDERED: ALBUTEROL SULFATE 2.5 MG/0.5 ML NEB SOLUTION NEB PRN (11:45)
[2023-10-27] MEDS: MethylPREDNISolone SOD SUCC 125 MG/2 ML VIAL IVP SCH ×2 (12:30→18:55)
[2023-10-27] MEDS: AZITHROMYCIN 500 MG/NS 250 ML IV SCH (12:44)
[2023-10-27] MEDS: ALBUTEROL SULFATE 2.5 MG/0.5 ML NEB SOLUTION NEB SCH ×2 (14:00→20:35)
[2023-10-27] MEDS: IPRATROPIUM BROMIDE 0.5 MG/2.5 ML NEB SOLUTION NEB SCH ×2 (14:00→20:35)
[2023-10-27] MEDS: FLUTICASONE/VILANTEROL 200-25 MCG/INH INHALER [14] IH SCH (14:59)
[2023-10-27] MEDS: CefTRIAXone 1 GM/DEXTROSE 50 ML IV SCH (14:59)
[2023-10-27] MEDS: HEPARIN SODIUM,PORCINE 5,000 UNITS/ML VIAL SQ SCH (16:43)
[2023-10-27] MEDS: BENZONATATE 100 MG CAPSULE PO SCH ×2 (16:47→21:36)
[2023-10-27] MEDS ORDERED: DiphenhydrAMINE HCL 50 MG/ML VIAL IVP ONE (20:30)
[2023-10-27] MEDS ORDERED: DiphenhydrAMINE HCL 25 MG CAPSULE PO ONE (20:30)
[2023-10-27] MEDS ORDERED: PERMETHRIN 5% 60 GM CREAM TP ONE (20:30)
[2023-10-27] MEDS: ATORVASTATIN CALCIUM 10 MG TABLET PO SCH (21:36)
[2023-10-27] MEDS: GuaiFENesin SR 600 MG ER TABLET PO SCH (21:36)
[2023-10-27] MEDS: DOCUSATE SODIUM 100 MG CAPSULE PO SCH (21:36)
[2023-10-28] VITALS (14 sets, daily range): BP systolic 108–132; BP diastolic 72–94; PULSE 53–111; RESP 16–19; TEMP 98–98.4; O2SAT 93–100
[2023-10-28] MEDS: MethylPREDNISolone SOD SUCC 125 MG/2 ML VIAL IVP SCH ×5 (00:52→23:19)
[2023-10-28] MEDS: HEPARIN SODIUM,PORCINE 5,000 UNITS/ML VIAL SQ SCH ×4 (00:52→23:18)
[2023-10-28] MEDS: ALBUTEROL SULFATE 2.5 MG/0.5 ML NEB SOLUTION NEB SCH ×4 (02:00→20:06)
[2023-10-28] MEDS: IPRATROPIUM BROMIDE 0.5 MG/2.5 ML NEB SOLUTION NEB SCH ×4 (02:00→20:06)
[2023-10-28] MEDS: ALBUTEROL SULFATE 2.5 MG/0.5 ML NEB SOLUTION NEB PRN (05:47)
[2023-10-28 06:35] LABS: EOSINOPHILS % (AUTO) 0 % (1.0-6.0); HEMATOCRIT 36.6 % (41-53); HEMOGLOBIN 12.2 g/dL (13.5-17.5); LYMPHOCYTES # (AUTO) 0.4 K/uL (1.0-4.8); LYMPHOCYTES % (AUTO) 6.4 % (22.0-44.0); MEAN CORPUSCULAR HEMOGLOBIN 29.6 pg (26.0-34.0); MEAN CORPUSCULAR HGB CONC 33.3 G/dL (31.0-37.0); MEAN CORPUSCULAR VOLUME 89 fL (80-100); MONOCYTES # (AUTO) 0.2 K/uL (0.1-1.0); MONOCYTES % (AUTO) 3.4 % (2.0-9.0); NEUTROPHILS # (AUTO) 6.1 K/uL (1.8-7.7); PLATELET COUNT (AUTO) 312 K/uL (150-450); RED BLOOD CELL COUNT(AUTO) 4.11 MIL/uL (4.50-5.90); RED CELL DISTRIBUTION WIDTH 15.2 % (11.5-14.5); WHITE BLOOD COUNT (AUTO) 6.8 K/uL (4.5-11.0)
[2023-10-28 06:44] LABS: ALANINE AMINOTRANSFERASE 27 U/L (12-78); ALBUMIN 3.6 g/dL (3.4-5.0); ALKALINE PHOSPHATASE 61 U/L (46-116); ANION GAP 8 mmol/L (8-16); ASPARTATE AMINOTRANSFERASE 19 U/L (15-37); BILIRUBIN,TOTAL 0.3 mg/dL (0.1-1.0); CALCIUM, TOTAL 8.9 mg/dL (8.8-10.5); CARBON DIOXIDE 28 mmol/L (22-29); CHLORIDE 103 mmol/L (98-107); CREATININE 0.92 mg/dL (0.60-1.30); GLOMERULAR FILTR. RATE CALC > 60 mL/min (>60); GLUCOSE,RANDOM 150 mg/dL (70-110); POTASSIUM 4.6 mmol/L (3.5-5.1); SODIUM SERUM 139 mmol/L (136-145); TOTAL PROTEIN, SERUM 7.1 g/dL (6.4-8.2); UREA NITROGEN, BLOOD 13 mg/dL (7-18)
[2023-10-28 06:59] LABS: NEUTROPHILS % (AUTO) 90.2 % (40.0-70.0)
[2023-10-28 08:36] LABS: RBC MORPHOLOGY COMMENT NORMAL RBC MORPH
[2023-10-28] MEDS: PANTOPRAZOLE SODIUM 40 MG DR TABLET PO SCH (09:46)
[2023-10-28] MEDS: BENZONATATE 100 MG CAPSULE PO SCH ×3 (09:46→20:19)
[2023-10-28] MEDS: LISINOPRIL 20 MG TABLET PO SCH (09:47)
[2023-10-28] MEDS: LORATADINE 10 MG TABLET PO SCH (09:47)
[2023-10-28] MEDS: DOCUSATE SODIUM 100 MG CAPSULE PO SCH ×2 (09:47→20:19)
[2023-10-28] MEDS: GuaiFENesin SR 600 MG ER TABLET PO SCH ×2 (09:47→20:19)
[2023-10-28] MEDS: FLUTICASONE/VILANTEROL 200-25 MCG/INH INHALER [14] IH SCH (09:48)
[2023-10-28] MEDS ORDERED: SODIUM CHLORIDE 0.9% 500 ML IV ONE (13:06)
[2023-10-28] MEDS: AZITHROMYCIN 500 MG/NS 250 ML IV SCH (13:24)
[2023-10-28] MEDS: CefTRIAXone 1 GM/DEXTROSE 50 ML IV SCH (15:35)
[2023-10-28] MEDS: ATORVASTATIN CALCIUM 10 MG TABLET PO SCH (20:19)
[2023-10-29 03:50] VITALS: BP 128/93; PULSE 96; RESP 20; TEMP 97.7
[2023-10-29] MEDS: MethylPREDNISolone SOD SUCC 125 MG/2 ML VIAL IVP SCH (05:27)
[2023-10-29 06:42] LABS: EOSINOPHILS % (AUTO) 0 % (1.0-6.0); HEMATOCRIT 36.1 % (41-53); HEMOGLOBIN 12.3 g/dL (13.5-17.5); LYMPHOCYTES # (AUTO) 0.4 K/uL (1.0-4.8); LYMPHOCYTES % (AUTO) 4.8 % (22.0-44.0); MEAN CORPUSCULAR HEMOGLOBIN 30.3 pg (26.0-34.0); MEAN CORPUSCULAR HGB CONC 34.2 G/dL (31.0-37.0); MEAN CORPUSCULAR VOLUME 89 fL (80-100); MONOCYTES # (AUTO) 0.5 K/uL (0.1-1.0); MONOCYTES % (AUTO) 5.4 % (2.0-9.0); NEUTROPHILS # (AUTO) 8.4 K/uL (1.8-7.7); PLATELET COUNT (AUTO) 308 K/uL (150-450); RED BLOOD CELL COUNT(AUTO) 4.07 MIL/uL (4.50-5.90); WHITE BLOOD COUNT (AUTO) 9.3 K/uL (4.5-11.0)
[2023-10-29] MEDS: IPRATROPIUM BROMIDE 0.5 MG/2.5 ML NEB SOLUTION NEB SCH (07:03)
[2023-10-29] MEDS: ALBUTEROL SULFATE 2.5 MG/0.5 ML NEB SOLUTION NEB SCH (07:03)
[2023-10-29 07:04] VITALS: PULSE 77; RESP 16; O2SAT 99
[2023-10-29 07:04] LABS: NEUTROPHILS % (AUTO) 89.8 % (40.0-70.0)
[2023-10-29 07:05] LABS: RBC MORPHOLOGY COMMENT NORMAL RBC MORPH
[2023-10-29 07:06] VITALS: PULSE 76; RESP 16; O2SAT 98
[2023-10-29 07:15] LABS: ANION GAP 8 mmol/L (8-16); CALCIUM, TOTAL 8.9 mg/dL (8.8-10.5); CARBON DIOXIDE 29 mmol/L (22-29); CHLORIDE 107 mmol/L (98-107); CREATININE 1.01 mg/dL (0.60-1.30); GLOMERULAR FILTR. RATE CALC > 60 mL/min (>60); GLUCOSE,RANDOM 135 mg/dL (70-110); POTASSIUM 4.8 mmol/L (3.5-5.1); SODIUM SERUM 144 mmol/L (136-145); UREA NITROGEN, BLOOD 19 mg/dL (7-18)
[2023-10-29] MEDS: LISINOPRIL 20 MG TABLET PO SCH (08:48)
[2023-10-29] MEDS: DOCUSATE SODIUM 100 MG CAPSULE PO SCH (08:48)
[2023-10-29] MEDS: PANTOPRAZOLE SODIUM 40 MG DR TABLET PO SCH (08:48)
[2023-10-29] MEDS: GuaiFENesin SR 600 MG ER TABLET PO SCH (08:48)
[2023-10-29] MEDS: BENZONATATE 100 MG CAPSULE PO SCH (08:48)
[2023-10-29] MEDS: HEPARIN SODIUM,PORCINE 5,000 UNITS/ML VIAL SQ SCH (08:49)
[2023-10-29] MEDS: LORATADINE 10 MG TABLET PO SCH (08:51)
[2023-10-29] MEDS: FLUTICASONE/VILANTEROL 200-25 MCG/INH INHALER [14] IH SCH (08:54)
[2023-10-29] MEDS ORDERED: PRED-554 PO (09:12)
[2023-10-29 09:52] VITALS: BP 133/94; PULSE 86; RESP 20; TEMP 98.3
== END 2023-10-29 12:15 | disposition home or self-care (01) | DRG 189 ==
LOC: EMS 04:33 → 5S 05:44 → 6N 10-28 12:10
PROVIDERS: ADMIT Internal Medicine; ATTEND Internal Medicine
PROC: 5A09357 Assistance with Respiratory Ventilation, Less than 24 Consecutive Hours, Continuous Positive Airway Pressure (ICD-10-PCS; principal; 2023-10-27)
DX: J96.01 Acute respiratory failure with hypoxia (principal); J44.1 Chronic obstructive pulmonary disease with (acute) exacerbation; I10 Essential (primary) hypertension; R73.9 Hyperglycemia, unspecified; E78.5 Hyperlipidemia, unspecified; Z20.822 Contact with and (suspected) exposure to COVID-19; E88.01 Alpha-1-antitrypsin deficiency; Z82.0 Family history of epilepsy and other diseases of the nervous system; Z80.8 Family history of malignant neoplasm of other organs or systems; Z79.899 Other long term (current) drug therapy
CPT/HCPCS: 71045; 80048; 80053; 82550; 83735; 83880; 84484; 85025; 87804; 93005; 94640; 94644; 94660; 99291; J0456; J0696; J1644; J2930; J7040; Q9967; 36415-L1; 36415-TC; J7613

== ENCOUNTER 2023-11-21 20:08 | Inpatient (IN) | payer MEDICARE, MEDICAID ==
[~2023-11-21] VITALS: Ht 170.2 cm; Wt 66.3 kg
[~2023-11-21 20:08] MED LIST changes: -GUAIFDM PO; -IPRA3AMP24 NEB
[2023-11-21] MEDS ORDERED: IPRATROPIUM BROMIDE 0.5 MG/2.5 ML NEB SOLUTION NEB ONE (20:15)
[2023-11-21] MEDS ORDERED: MethylPREDNISolone SOD SUCC 125 MG/2 ML VIAL IVP ONE (20:15)
[2023-11-21] MEDS ORDERED: ALBUTEROL SULFATE 2.5 MG/0.5 ML NEB SOLUTION NEB ONE (20:15)
[2023-11-21] MEDS ORDERED: NITROGLYCERIN 2% (1 GM=INCH) OINTMENT PACKET TP ONE ×2 (20:17→20:30)
[2023-11-21] MEDS ORDERED: BUDESONIDE 0.5 MG/2 ML NEB SOLUTION NEB ONE (20:30)
[2023-11-21 20:31] LABS: BASOPHILS % (AUTO) 0.7 % (0.0-2.0); EOSINOPHILS % (AUTO) 5.3 % (1.0-6.0); HEMATOCRIT 40.1 % (41-53); HEMOGLOBIN 13.3 g/dL (13.5-17.5); LYMPHOCYTES # (AUTO) 1.7 K/uL (1.0-4.8); LYMPHOCYTES % (AUTO) 18.3 % (22.0-44.0); MEAN CORPUSCULAR HGB CONC 33.3 G/dL (31.0-37.0); MEAN CORPUSCULAR VOLUME 90 fL (80-100); MONOCYTES # (AUTO) 0.9 K/uL (0.1-1.0); MONOCYTES % (AUTO) 9.3 % (2.0-9.0); NEUTROPHILS # (AUTO) 6.2 K/uL (1.8-7.7); NEUTROPHILS % (AUTO) 66.4 % (40.0-70.0); PLATELET COUNT (AUTO) 313 K/uL (150-450); RED BLOOD CELL COUNT(AUTO) 4.45 MIL/uL (4.50-5.90); RED CELL DISTRIBUTION WIDTH 15.7 % (11.5-14.5); WHITE BLOOD COUNT (AUTO) 9.3 K/uL (4.5-11.0)
[2023-11-21 20:34] VITALS: PULSE 116; RESP 21; O2SAT 97
[2023-11-21 20:36] VITALS: PULSE 116; RESP 21; O2SAT 97
[2023-11-21 20:37] VITALS: PULSE 116; RESP 21; O2SAT 97
[2023-11-21 20:42] LABS: ANION GAP 10 mmol/L (8-16); CALCIUM, TOTAL 9.3 mg/dL (8.8-10.5); CARBON DIOXIDE 29 mmol/L (22-29); CHLORIDE 103 mmol/L (98-107); CREATININE 1.01 mg/dL (0.60-1.30); GLOMERULAR FILTR. RATE CALC > 60 mL/min (>60); GLUCOSE,RANDOM 121 mg/dL (70-110); POTASSIUM 4.8 mmol/L (3.5-5.1); SODIUM SERUM 142 mmol/L (136-145); UREA NITROGEN, BLOOD 16 mg/dL (7-18)
[2023-11-21 20:50] LABS: B-TYPE NATRIURETIC PEPTIDE 17 pg/mL (0-100)
[2023-11-21 21:06] LABS: ALANINE AMINOTRANSFERASE 34 U/L (12-78); ALBUMIN 4.6 g/dL (3.4-5.0); ALKALINE PHOSPHATASE 69 U/L (46-116); ASPARTATE AMINOTRANSFERASE 26 U/L (15-37); BILIRUBIN,TOTAL 0.2 mg/dL (0.1-1.0); CREATINE KINASE, TOTAL ONLY 155 U/L (39-308); TOTAL PROTEIN, SERUM 7.8 g/dL (6.4-8.2)
[2023-11-21 21:35] LABS: TROPONIN I-HIGH SENSITIVITY 8 ng/L (<76)
[2023-11-21] MEDS ORDERED: AZITHROMYCIN 500 MG/NS 250 ML IV ONE (21:45)
[2023-11-21] MEDS ORDERED: CefTRIAXone 1 GM/DEXTROSE 50 ML IV ONE (21:45)
[2023-11-21 22:15] LABS: COVID AG,FIA SOURCE NASAL SWAB
[2023-11-21 22:39] LABS: SARS-COV2 (COVID) ANTIGEN,FIA Negative (Negative)
[2023-11-21 22:48] LABS: LACTIC ACID 1.1 mmol/L (0.4-2.0)
[2023-11-22] VITALS (18 sets, daily range): BP systolic 109–142; BP diastolic 67–95; PULSE 100–114; RESP 11–22; TEMP 97.4–99.3; O2SAT 91–98
[2023-11-22] MEDS ORDERED: ALBUTEROL SULFATE 2.5 MG/0.5 ML NEB SOLUTION NEB PRN ×2 (00:15)
[2023-11-22] MEDS ORDERED: ZOLPIDEM TARTRATE 5 MG TABLET PO PRN (00:15)
[2023-11-22] MEDS ORDERED: OxyCODONE HCL/ACETAMINOPHEN 5-325 MG TABLET PO PRN (00:15)
[2023-11-22] MEDS ORDERED: IPRATROPIUM BROMIDE 0.5 MG/2.5 ML NEB SOLUTION NEB PRN ×2 (00:15)
[2023-11-22] MEDS ORDERED: MORPHINE SULFATE 2 MG/ML SYRINGE IVP PRN (00:15)
[2023-11-22] MEDS ORDERED: BISACODYL 10 MG RECTAL RECTAL SUPPOSITORY PR PRN (00:15)
[2023-11-22] MEDS ORDERED: ACETAMINOPHEN 325 MG TABLET PO PRN ×2 (00:15)
[2023-11-22] MEDS ORDERED: ONDANSETRON HCL 4 MG/2 ML VIAL IVP PRN (00:15)
[2023-11-22] MEDS ORDERED: MAGNESIUM HYDROXIDE SUSPENSION 30 ML UDCUP PO PRN ×2 (00:15)
[2023-11-22] MEDS ORDERED: SODIUM CHLORIDE 0.9% 250 ML IV ONE (00:43)
[2023-11-22] MEDS: ALBUTEROL SULFATE 2.5 MG/0.5 ML NEB SOLUTION NEB SCH ×6 (03:29→23:05)
[2023-11-22] MEDS: IPRATROPIUM BROMIDE 0.5 MG/2.5 ML NEB SOLUTION NEB SCH ×6 (03:29→23:05)
[2023-11-22] MEDS: MethylPREDNISolone SOD SUCC 125 MG/2 ML VIAL IVP SCH ×3 (06:13→17:49)
[2023-11-22 06:50] LABS: BASOPHILS % (AUTO) 0.3 % (0.0-2.0); EOSINOPHILS % (AUTO) 0.2 % (1.0-6.0); HEMATOCRIT 36.1 % (41-53); HEMOGLOBIN 12.1 g/dL (13.5-17.5); LYMPHOCYTES # (AUTO) 0.2 K/uL (1.0-4.8); LYMPHOCYTES % (AUTO) 5.7 % (22.0-44.0); MEAN CORPUSCULAR HEMOGLOBIN 30.1 pg (26.0-34.0); MEAN CORPUSCULAR HGB CONC 33.6 G/dL (31.0-37.0); MEAN CORPUSCULAR VOLUME 90 fL (80-100); MONOCYTES # (AUTO) 0.1 K/uL (0.1-1.0); MONOCYTES % (AUTO) 2.1 % (2.0-9.0); NEUTROPHILS # (AUTO) 3.9 K/uL (1.8-7.7); PLATELET COUNT (AUTO) 255 K/uL (150-450); RED BLOOD CELL COUNT(AUTO) 4.02 MIL/uL (4.50-5.90); RED CELL DISTRIBUTION WIDTH 15.3 % (11.5-14.5); WHITE BLOOD COUNT (AUTO) 4.3 K/uL (4.5-11.0)
[2023-11-22 07:07] LABS: NEUTROPHILS % (AUTO) 91.7 % (40.0-70.0)
[2023-11-22 07:16] LABS: ANION GAP 12 mmol/L (8-16); CALCIUM, TOTAL 8.8 mg/dL (8.8-10.5); CARBON DIOXIDE 26 mmol/L (22-29); CHLORIDE 102 mmol/L (98-107); CREATININE 0.92 mg/dL (0.60-1.30); GLOMERULAR FILTR. RATE CALC > 60 mL/min (>60); GLUCOSE,RANDOM 142 mg/dL (70-110); POTASSIUM 4.8 mmol/L (3.5-5.1); SODIUM SERUM 140 mmol/L (136-145); UREA NITROGEN, BLOOD 14 mg/dL (7-18)
[2023-11-22] MEDS: LISINOPRIL 20 MG TABLET PO SCH (08:38)
[2023-11-22] MEDS: PANTOPRAZOLE SODIUM 40 MG/VIAL IVP SCH (08:38)
[2023-11-22] MEDS: LORATADINE 10 MG TABLET PO SCH (08:38)
[2023-11-22] MEDS: DOCUSATE SODIUM 100 MG CAPSULE PO SCH ×2 (08:38→21:17)
[2023-11-22] MEDS: HEPARIN SODIUM,PORCINE 5,000 UNITS/ML VIAL SQ SCH ×2 (08:38→16:02)
[2023-11-22] MEDS: ATORVASTATIN CALCIUM 10 MG TABLET PO SCH (21:17)
[2023-11-23] VITALS (16 sets, daily range): BP systolic 107–133; BP diastolic 52–94; PULSE 85–108; RESP 18–20; TEMP 97.6–98; O2SAT 96–99
[2023-11-23] MEDS: HEPARIN SODIUM,PORCINE 5,000 UNITS/ML VIAL SQ SCH ×4 (00:01→23:53)
[2023-11-23] MEDS: IPRATROPIUM BROMIDE 0.5 MG/2.5 ML NEB SOLUTION NEB SCH ×6 (02:31→23:45)
[2023-11-23] MEDS: ALBUTEROL SULFATE 2.5 MG/0.5 ML NEB SOLUTION NEB SCH ×6 (02:31→23:45)
[2023-11-23] MEDS: MethylPREDNISolone SOD SUCC 125 MG/2 ML VIAL IVP SCH ×5 (06:14→23:55)
[2023-11-23] MEDS: PANTOPRAZOLE SODIUM 40 MG/VIAL IVP SCH (08:02)
[2023-11-23] MEDS: DOCUSATE SODIUM 100 MG CAPSULE PO SCH ×2 (08:02→20:36)
[2023-11-23] MEDS: HYDROCODONE/ACETAMINOPHEN 5-325 MG TABLET PO PRN ×3 (08:02→16:19)
[2023-11-23] MEDS: LISINOPRIL 20 MG TABLET PO SCH (08:03)
[2023-11-23] MEDS: LORATADINE 10 MG TABLET PO SCH (12:09)
[2023-11-23] MEDS: ATORVASTATIN CALCIUM 10 MG TABLET PO SCH (20:36)
[2023-11-24] VITALS (10 sets, daily range): BP systolic 112–132; BP diastolic 68–83; PULSE 85–105; RESP 18–20; TEMP 97.6–98; O2SAT 95–99
[2023-11-24] MEDS: IPRATROPIUM BROMIDE 0.5 MG/2.5 ML NEB SOLUTION NEB SCH ×4 (03:00→15:20)
[2023-11-24] MEDS: ALBUTEROL SULFATE 2.5 MG/0.5 ML NEB SOLUTION NEB SCH ×4 (03:00→15:20)
[2023-11-24] MEDS: MethylPREDNISolone SOD SUCC 125 MG/2 ML VIAL IVP SCH (05:58)
[2023-11-24] MEDS: DOCUSATE SODIUM 100 MG CAPSULE PO SCH (08:25)
[2023-11-24] MEDS: HEPARIN SODIUM,PORCINE 5,000 UNITS/ML VIAL SQ SCH ×2 (08:25→16:37)
[2023-11-24] MEDS: PANTOPRAZOLE SODIUM 40 MG/VIAL IVP SCH (08:25)
[2023-11-24] MEDS: HYDROCODONE/ACETAMINOPHEN 5-325 MG TABLET PO PRN ×3 (08:25→16:50)
[2023-11-24] MEDS: LORATADINE 10 MG TABLET PO SCH (08:25)
[2023-11-24] MEDS: LISINOPRIL 20 MG TABLET PO SCH (08:25)
[2023-11-24] MEDS ORDERED: MethylPREDNISolone SOD SUCC 125 MG/2 ML VIAL ONE (09:06)
[2023-11-24] MEDS ORDERED: PRED-729 PO (11:47)
[2023-11-24] MEDS ORDERED: PredniSONE 20 MG TABLET PO ONE (12:00)
== END 2023-11-24 17:00 | disposition home or self-care (01) | DRG 190 ==
LOC: EMS 20:09 → ICU 23:20 → 5S 11-22 20:05
PROVIDERS: ADMIT Hospitalist; ATTEND Hospitalist
PROC: 5A09357 Assistance with Respiratory Ventilation, Less than 24 Consecutive Hours, Continuous Positive Airway Pressure (ICD-10-PCS; principal; 2023-11-21)
DX: J44.1 Chronic obstructive pulmonary disease with (acute) exacerbation (principal); J96.00 Acute respiratory failure, unspecified whether with hypoxia or hypercapnia; J45.901 Unspecified asthma with (acute) exacerbation; D64.9 Anemia, unspecified; Z20.822 Contact with and (suspected) exposure to COVID-19; I50.9 Heart failure, unspecified; I11.0 Hypertensive heart disease with heart failure; Z99.81 Dependence on supplemental oxygen; Z79.899 Other long term (current) drug therapy
CPT/HCPCS: 71045; 80048; 80053; 82550; 83605; 83880; 84484; 85025; 85379; 87040; 87081; 93005; 94060; 94640; 94660; 99291; C9113; J0456; J0696; J1644; J2930; J7050; 36415-L1; 36415-TC; J7613

== ENCOUNTER 2023-12-21 22:30 | Emergency (ER) | payer MEDICARE, MEDICAID ==
[~2023-12-21] VITALS: Ht 177.8 cm; Wt 70.5 kg
[~2023-12-21 22:30] MED LIST changes: -PRED-554 PO; +PRED-729 PO
[2023-12-21 22:52] VITALS: TEMP 98.7
[2023-12-22] MEDS: MethylPREDNISolone SOD SUCC 125 MG/2 ML VIAL IVP ONE (00:04)
[2023-12-22] MEDS: IPRATROPIUM BROMIDE 0.5 MG/2.5 ML NEB SOLUTION NEB ONE ×2 (00:16→03:04)
[2023-12-22] MEDS: ALBUTEROL SULFATE 2.5 MG/0.5 ML NEB SOLUTION NEB ONE ×2 (00:16→03:04)
[2023-12-22 00:17] LABS: EOSINOPHILS % (AUTO) 11.5 % (1.0-6.0); HEMATOCRIT 38.4 % (41-53); HEMOGLOBIN 12.5 g/dL (13.5-17.5); LYMPHOCYTES # (AUTO) 1.3 K/uL (1.0-4.8); LYMPHOCYTES % (AUTO) 23.1 % (22.0-44.0); MEAN CORPUSCULAR HEMOGLOBIN 29.4 pg (26.0-34.0); MEAN CORPUSCULAR HGB CONC 32.6 G/dL (31.0-37.0); MEAN CORPUSCULAR VOLUME 90 fL (80-100); MONOCYTES # (AUTO) 0.7 K/uL (0.1-1.0); MONOCYTES % (AUTO) 12.4 % (2.0-9.0); NEUTROPHILS # (AUTO) 2.9 K/uL (1.8-7.7); PLATELET COUNT (AUTO) 316 K/uL (150-450); RED BLOOD CELL COUNT(AUTO) 4.27 MIL/uL (4.50-5.90); RED CELL DISTRIBUTION WIDTH 15.1 % (11.5-14.5); WHITE BLOOD COUNT (AUTO) 5.5 K/uL (4.5-11.0)
[2023-12-22 00:20] VITALS: PULSE 101; PULSE 98; RESP 20; O2SAT 98
[2023-12-22 00:27] LABS: ANION GAP 9 mmol/L (8-16); CALCIUM, TOTAL 9.5 mg/dL (8.8-10.5); CARBON DIOXIDE 29 mmol/L (22-29); CHLORIDE 101 mmol/L (98-107); CREATININE 1.01 mg/dL (0.60-1.30); GLOMERULAR FILTR. RATE CALC > 60 mL/min (>60); GLUCOSE,RANDOM 97 mg/dL (70-110); POTASSIUM 3.9 mmol/L (3.5-5.1); SODIUM SERUM 139 mmol/L (136-145); UREA NITROGEN, BLOOD 11 mg/dL (7-18)
[2023-12-22 00:33] LABS: ALANINE AMINOTRANSFERASE 26 U/L (12-78); ALBUMIN 3.9 g/dL (3.4-5.0); ALKALINE PHOSPHATASE 60 U/L (46-116); ASPARTATE AMINOTRANSFERASE 19 U/L (15-37); BILIRUBIN,TOTAL 0.3 mg/dL (0.1-1.0); TOTAL PROTEIN, SERUM 6.8 g/dL (6.4-8.2)
[2023-12-22 00:35] LABS: B-TYPE NATRIURETIC PEPTIDE 8 pg/mL (0-100)
[2023-12-22 00:41] VITALS: PULSE 116; RESP 22; O2SAT 100
[2023-12-22] MEDS: CefTRIAXone 1 GM/DEXTROSE 50 ML IV ONE (01:19)
[2023-12-22] MEDS: AZITHROMYCIN 500 MG/NS 250 ML IV ONE (01:29)
[2023-12-22 03:05] VITALS: PULSE 90; RESP 18; O2SAT 97
[2023-12-22 03:20] VITALS: PULSE 96; RESP 20; O2SAT 100
[2023-12-22] MEDS ORDERED: PRED-554 PO (04:57)
[2023-12-22] MEDS ORDERED: AZIT250T9 PO (04:58)
[2023-12-22 05:47] VITALS: BP 105/90; PULSE 97; RESP 17
== END 2023-12-22 06:17 | disposition home or self-care (01) ==
LOC: EMS 22:35
DX: J45.901 Unspecified asthma with (acute) exacerbation (principal); I10 Essential (primary) hypertension
CPT/HCPCS: 99285; 71045; 80053; 83880; 85025; 36415; 96365; 96366; 94640; 96368; J0456; J0696; J2930; J7613

== ENCOUNTER 2024-01-08 08:25 | Emergency (ER) | payer MEDICARE, MEDICAID ==
[~2024-01-08] VITALS: Ht 177.8 cm; Wt 70.5 kg
[~2024-01-08 08:25] MED LIST changes: +PRED-554 PO
[2024-01-08] MEDS ORDERED: ATOR20TA65 PO (08:38)
[2024-01-08] MEDS: CefTRIAXone 1 GM/DEXTROSE 50 ML IV ONE (09:10)
[2024-01-08] MEDS: MethylPREDNISolone SOD SUCC 125 MG/2 ML VIAL IVP ONE (09:11)
[2024-01-08] MEDS: ALBUTEROL SULFATE 2.5 MG/0.5 ML NEB SOLUTION NEB ONE (09:15)
[2024-01-08] MEDS: IPRATROPIUM BROMIDE 0.5 MG/2.5 ML NEB SOLUTION NEB ONE ×2 (09:15→11:43)
[2024-01-08 09:17] VITALS: PULSE 114; RESP 22; O2SAT 100
[2024-01-08 09:21] VITALS: PULSE 113; RESP 22; O2SAT 100
[2024-01-08 09:29] LABS: BASOPHILS % (AUTO) 0.8 % (0.0-2.0); EOSINOPHILS % (AUTO) 3.7 % (1.0-6.0); HEMATOCRIT 42.1 % (41-53); HEMOGLOBIN 14.1 g/dL (13.5-17.5); LYMPHOCYTES # (AUTO) 0.7 K/uL (1.0-4.8); LYMPHOCYTES % (AUTO) 8.6 % (22.0-44.0); MEAN CORPUSCULAR HEMOGLOBIN 30.4 pg (26.0-34.0); MEAN CORPUSCULAR HGB CONC 33.5 G/dL (31.0-37.0); MEAN CORPUSCULAR VOLUME 91 fL (80-100); MONOCYTES # (AUTO) 0.6 K/uL (0.1-1.0); MONOCYTES % (AUTO) 8.1 % (2.0-9.0); NEUTROPHILS # (AUTO) 6.1 K/uL (1.8-7.7); NEUTROPHILS % (AUTO) 78.8 % (40.0-70.0); PLATELET COUNT (AUTO) 289 K/uL (150-450); RED BLOOD CELL COUNT(AUTO) 4.63 MIL/uL (4.50-5.90); RED CELL DISTRIBUTION WIDTH 14.7 % (11.5-14.5); WHITE BLOOD COUNT (AUTO) 7.7 K/uL (4.5-11.0)
[2024-01-08 09:40] LABS: ANION GAP 9 mmol/L (8-16); CALCIUM, TOTAL 9.5 mg/dL (8.8-10.5); CARBON DIOXIDE 30 mmol/L (22-29); CHLORIDE 98 mmol/L (98-107); CREATININE 1.01 mg/dL (0.60-1.30); GLOMERULAR FILTR. RATE CALC > 60 mL/min (>60); GLUCOSE,RANDOM 118 mg/dL (70-110); POTASSIUM 4.5 mmol/L (3.5-5.1); SODIUM SERUM 137 mmol/L (136-145); UREA NITROGEN, BLOOD 14 mg/dL (7-18)
[2024-01-08 09:46] LABS: ALANINE AMINOTRANSFERASE 27 U/L (12-78); ALKALINE PHOSPHATASE 59 U/L (46-116); ASPARTATE AMINOTRANSFERASE 20 U/L (15-37); BILIRUBIN,TOTAL 0.4 mg/dL (0.1-1.0); TOTAL PROTEIN, SERUM 7.5 g/dL (6.4-8.2)
[2024-01-08 09:48] LABS: B-TYPE NATRIURETIC PEPTIDE 17 pg/mL (0-100); TROPONIN I-HIGH SENSITIVITY 29 ng/L (<76)
[2024-01-08 09:53] LABS: LACTIC ACID 0.9 mmol/L (0.4-2.0)
[2024-01-08 10:31] LABS: COVID AG,FIA SOURCE NASAL SWAB
[2024-01-08 10:47] VITALS: TEMP 98
[2024-01-08 10:48] LABS: SARS-COV2 (COVID) ANTIGEN,FIA Negative (Negative)
[2024-01-08 11:40] VITALS: BP 135/78
[2024-01-08] MEDS: ALBUTEROL SULFATE 2.5 MG/0.5 ML 5 ML NEB SOLUTION NEB ONE (11:43)
[2024-01-08 11:45] VITALS: PULSE 105; RESP 24; O2SAT 91
== END 2024-01-08 12:38 | disposition short-term general hospital (02) ==
LOC: EMS 08:26
DX: J96.01 Acute respiratory failure with hypoxia (principal); J44.1 Chronic obstructive pulmonary disease with (acute) exacerbation; E88.01 Alpha-1-antitrypsin deficiency; I11.0 Hypertensive heart disease with heart failure; I50.9 Heart failure, unspecified; Z20.822 Contact with and (suspected) exposure to COVID-19
CPT/HCPCS: 99291; 96365; 96375; 87426; 80053; 83605; 83880; 84484; 85025; 87040; 36415; 94644; 71045; 93005; J0696; J2930; Q9967; 94640